=== PATIENT | female | born 2005 | race Caucasian/White ===

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

== ENCOUNTER → 2024-08-03 | Outpatient (CLI) | payer OTHER ==
[~2024-08-03] MED LIST changes: +DIPH-435 PO; -DIPH25CA32 PO
== END ==
LOC: M WUC 10:13
PROVIDERS: ATTEND Family Medicine
DX: M67.431 Ganglion, right wrist (principal)